=== PATIENT | female | born 1975 | race Two or more races ===

== ENCOUNTER 2025-07-03 04:05 | Emergency (ER) | payer MEDICAID, OTHER ==
[~2025-07-03] VITALS: Ht 165.1 cm; Wt 91.0 kg
[2025-07-03 04:05] VITALS: BP 124/74; PULSE 86; RESP 16; TEMP 98; O2SAT 99
--- NOTE | 2025-07-03 04:36 | ED.PDOC ---
Psychiatric HPI Comments 50-year-old came to ER via EMS for anxiety. Patient is homeless, was seen in the neighborhood, anxious, yelling. She denies pain. Have history of schizophrenia, bipolar disorder and ADHD. She denies using any drugs. Chief Complaint: Anxiety Time Seen by MD: 04:34 Reviewed Notes: [employer] Notes Information Source: Patient, Emergency Med Personnel Mode of Arrival: EMS Severity: Unable to Care for Self, Unable to Control Self Severity of Pain: Moderate Severity of Mental Status: Moderate Severity of Symptoms: Moderate Timing: Hours Duration: Intermittent Presents with: Depression, Anxiety, Unclear Thinking Circumstance: Causing a Disturbance History of: Depression, Anxiety, Schizophrenia Associated signs and symptoms: Depression, Hopeless, Anxiety Past Medical History PAST MEDICAL HISTORY: Anxiety, Schizophrenia Past Medical History (Other): Bipolar disorder, ADHD Surgical History: 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 Hx Family History Family History: Reviewed,noncontributory to illness Social History Smoker: Non-Smoker Alcohol: Denies ETOH Use Drugs: Denies Drug Use Lives In: Homeless Constitutional: denies: chills, diaphoresis, fatigue, fever, malaise, sweats, weakness, others EENTM: denies: blurred vision, double vision, ear bleeding, ear discharge, ear drainage, ear pain, ear ringing, eye pain, eye redness, hearing loss, mouth pain, mouth swelling, nasal discharge, nose bleeding, nose congestion, nose pain, photophobia, tearing, throat pain, throat swelling, voice changes, others Respiratory: denies: cough, hemoptysis, orthopnea, SOB at rest, shortness of breath, SOB with excertion, stridor, wheezing, others Cardiovascular: denies: chest pain, dizzy spells, diaphoresis, Dyspnea on exertion, edema, irregular heart beat, left arm pain, lightheadedness, palpitations, PND, syncope, others Gastrointestinal: denies: abdomen distended, abdominal pain, blood streaked bowels, constipated, diarrhea, dysphagia, difficulty swallowing, hematemesis, melena, nausea, poor appetite, poor fluid intake, rectal bleeding, rectal pain, vomiting, others Genitourinary: denies: abnormal vagina bleeding, burning, dyspareunia, dysuria, flank pain, frequency, hematuria, incontinence, pain, , vagina discharge, urgency, others Neurological: denies: dizziness, fainting, headache, left sided numbness, left sided weakness, numbness, paresthesia, pre-existing deficit, right sided numb ness, right sided weakness, seizure, speech problems, tingling, tremors, weakness, others Musculoskeletal: denies: back pain, gout, joint pain, joint swelling, muscle pain, muscle stiffness, neck pain, others Integumetry: denies: bruises, change in color, change in hair/nails, dryness, laceration, lesions, lumps, rash, wounds, others Allergic/Immunocompromised: denies: Difficulty Healing, Frequent Infections, Hives, Itching, others Hematologic/Lymphatic: denies: anemia, blood clots, easy bleeding, easy bruising, swollen glands, others Endocrine: denies: excessive hunger, excessive sweating, excessive thirst, excessive urination, flushing, intolerance to cold, intolerance to heat, unexplained weight gain, unexplained weight loss, others Psychiatric: reports: anxiety, bipolar disorder, schizophrenia; denies: depression, hopeless, panic disorder, sleepless, suicidal, others Physical Exam General Appearance: No Apparent Distress, Normal HEENT: Normal ENT Inspection, Pharynx Normal, TMs Normal Neck: Full Range of Motion, Non-Tender, Normal, Normal Inspection Respiratory: Chest Non-Tender, Lungs Clear, No Accessory Muscle Use, No Respiratory Distress, Normal Breath Sounds Cardiovascular: No Edema, No JVD, No Murmur, No Gallop, Normal Peripheral Pulses, Regular Rate/Rhythm Breast Exam: Deferred Gastrointestinal: No Organomegaly, Non Tender, No Pulsatile Mass, Normal Bowel Sounds, Soft Genitalia: Deferred Pelvic: Deferred Rectal: Deferred Extremities: No calf tenderness, Normal capillary refill, Normal inspection, Normal range of motion, Non-tender, No pedal edema Musculoskeletal : Apperance: Normal Neurologic: Alert, 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 Was a procedure done?: No Psych Differential Dx Psych. Differential Dx: Anxiety, Depression, Hopeless, Panic Disorder X-Ray, Labs, Meds, VS Vital Signs Date Time Temp Pulse Resp B/P (MAP) Pulse Ox O2 Delivery O2 Flow Rate FiO2 07/03/25 04:05 98.0 86 16 124/74 99 98.0 Time of 1ST Reevaluation: 04:28 Reevaluation 1ST: Unchanged Time of 2ND Reevaluation: 04:42 Reevaluation 2ND: eloped Time of 3RD Reevaluation: 05:13 Reevaluation 3RD: Patient has not returned Patient Education/Counseling: Diagnosis, Treatment Family Education/Counseling: No Family Present Comments pt eloped. staff is looking for her. we will keep chart open for now, in case she returns. Departure 1 Departure Time of Disposition: 05:14 Impression: Primary Impression: Anxiety Disposition: LEFT AWOL/ELOPED Condition: Other (unknown) Critical Care Note Critical Care Time?: No Stability Stability form required: No Heart Score Heart Score: Heart Score Response (Comments) Value History N/A 0 EKG N/A 0 Age N/A 0 Risk Factors N/A 0 Troponin N/A 0 Total 0 I personally scribed for THADDEUS ATKINS MD ([email or web address]) on 07/03/25 at 04:36. Electronically submitted by Abelino Corado ([facility]). THADDEUS ATKINS MD Jul 03, 2025 04:36
== END 2025-07-03 04:44 | disposition left against medical advice (07) ==
LOC: EDBD 04:05 → ER 04:12
DX: F41.9 Anxiety disorder, unspecified (principal); F20.9 Schizophrenia, unspecified; F31.9 Bipolar disorder, unspecified